=== PATIENT | male | born 1955 | race African-American/Black ===

== ENCOUNTER 2019-04-30 01:50 | Emergency (ER) | payer MEDICAID ==
[~2019-04-30] VITALS: Ht 182.9 cm; Wt 94.0 kg
[2019-04-30] MEDS ORDERED: KETOROLAC 60MG/2ML VIAL IM STA (05:07)
[2019-04-30] MEDS ORDERED: HYDROCODONE/ACETAMINOPHEN 5/325MG TABLET PO ONE (07:45)
[2019-04-30 08:00] VITALS: BP 142/80
== END 2019-04-30 08:15 | disposition home or self-care (01) ==
LOC: ER 01:50
DX: M65.342 Trigger finger, left ring finger (principal); E11.9 Type 2 diabetes mellitus without complications; I10 Essential (primary) hypertension; Z98.890 Other specified postprocedural states; Z88.0 Allergy status to penicillin; Z88.2 Allergy status to sulfonamides; W01.0XXA Fall on same level from slipping, tripping and stumbling without subsequent striking against object, initial encounter; Y93.89 Activity, other specified; Y92.89 Other specified places as the place of occurrence of the external cause; Y99.8 Other external cause status
CPT/HCPCS: 29125; 73110; 73130; 73140; 96372; 99283; J1885

== ENCOUNTER 2024-08-21 16:31 | Emergency (ER) | payer MEDICARE, MEDICAID ==
[~2024-08-21] VITALS: Ht 182.9 cm; Wt 91.0 kg
[2024-08-21 16:32] VITALS: O2SAT 99
[2024-08-21 16:40] VITALS: TEMP 36.9; O2SAT 97
[2024-08-21] MEDS ORDERED: CYCL5TAB3 MT (19:04)
[2024-08-21] MEDS ORDERED: NAPR-1129 MT (19:04)
[2024-08-21] MEDS ORDERED: LIDO700A15 TP (19:04)
[2024-08-21 19:37] VITALS: BP 181/73; PULSE 99; RESP 18
[2024-08-21] MEDS: IBUPROFEN 600MG TABLET PO ONE (19:37)
[2024-08-21] MEDS: CYCLOBENZAPRINE 10MG TABLET PO SCH (19:37)
== END 2024-08-21 19:42 | disposition home or self-care (01) ==
LOC: ER 16:50
DX: S69.92XA Unspecified injury of left wrist, hand and finger(s), initial encounter (principal); S89.92XA Unspecified injury of left lower leg, initial encounter; G89.11 Acute pain due to trauma; I10 Essential (primary) hypertension; E11.9 Type 2 diabetes mellitus without complications; Z88.0 Allergy status to penicillin; Z88.1 Allergy status to other antibiotic agents; Z88.2 Allergy status to sulfonamides; V43.52XA Car driver injured in collision with other type car in traffic accident, initial encounter; Y93.89 Activity, other specified; Y92.89 Other specified places as the place of occurrence of the external cause; Y99.8 Other external cause status
CPT/HCPCS: 73110; 73564; 99284